=== PATIENT | female | born 1980 | race Caucasian/White ===

== ENCOUNTER 2016-10-09 06:28 | Day surgery (SDC) | payer MEDICAID ==
--- NOTE | 2016-10-03 14:40 | PREOPERATIVE H&P ---
History of Present Illness (Júnior Price M.D.; 10/03/2016 12:54 PM) The patient is a 36 year old female who presents for a pre operative evaluation. Surgical procedures include: laparoscopy with ovarian cystectomy. The reason for surgery is ovarian cyst removal/drainage. Date of procedure: (10/09). Planned anesthesia: general anesthesia. There have been no problems with general anesthesia, blood/blood products, or surgery in the past. The patient has no identifiable cardiac risk factors. Risk factors for post operative thromboembolism includes: oral contraceptives. In depth conversation with the patient/guardian concerning the procedure, risks, complications, benefits, alternatives, success, possible failure and need for further surgery or intervention questions were answered and no guarantees were made. Problem List/Past Medical (Júnior Price M.D.; 10/03/2016 12:55 PM) Anxiety (F41.9) Migraine (346.90) (G43.909) Polycystic ovaries (256.4) (E28.2) Allergies (Júnior Price M.D.; 10/03/2016 12:55 PM) No Known Drug Allergies Family History (Júnior Price M.D.; 10/03/2016 12:55 PM) Alcohol Abuse Brother. Alzheimer's disease Paternal Grandmother. Anxiety Disorder Mother, Brother. Cancer (not otherwise specified) Maternal Grandfather. Stomach Cancer Cervical Cancer Mother. Depression Mother. Diabetes Mellitus Type II Maternal Grandmother. Glaucoma (not otherwise specified) Maternal Grandmother. Hypertension Mother. Lung Cancer Maternal Grandmother. Lymphoma Father. + Testicular Cancer Social History (Júnior Price M.D.; 10/03/2016 12:55 PM) Alcohol use Occasional alcohol use. Marital status . Tobacco use Never smoker. Medication History (Júnior Price M.D.; 10/03/2016 1:49 PM) MetFORMIN HCl (500MG Tablet, 1 Oral two times daily, Taken starting 05/29/2016 ) Active. (Take with meals, start with 1 tablet in am for 1 week then increase to twice a day.) Tri-Sprintec (0.18/0.215/0.25MG-35 MCG Tablet, 1 (one) Tablet Oral daily, Taken starting 05/29/2016) Active. Spironolactone (50MG Tablet, 1 (one) Tablet Oral daily, in the morning, Taken starting 05/29/2016) Active. Sertraline HCl (50MG Tablet, 1 (one) Tablet Oral daily, Taken starting 2016) Active. Ibuprofen (200MG Capsule, Oral) Active. (AG[place]LL[place], back pain Occasional) Multi Vitamin Daily (1 Oral daily) Active. Medications Reconciled Past Surgical History (Júnior Price M.D.; 10/03/2016 12:55 PM) None Review of Systems (Júnior Price M.D.; 10/03/2016 12:55 PM) General Present- Feeling well. Not Present- Night Sweats and Weight Loss > 10lbs.. Skin Not Present- New Lesions and Rash. HEENT Present- Corrective lenses. Not Present- Hearing Loss. Neck Not Present- Neck Mass. Respiratory Not Present- Cough, Hemoptysis and Wheezing. Breast Not Present- Breast Mass and Skin Changes. Cardiovascular Not Present- Chest Pain and Fainting / Blacking Out. Gastrointestinal Not Present- Abdominal Pain, Bloating, Bloody Stool and Change in Bowel Habits. Female Genitourinary Present- Incontinence (rare MISBAH). Not Present- Blood in Urine, Dysuria, Frequency, Hematuria, Urgency, Vaginal Discharge, Vaginal itching/burning and Vulvar itching. Musculoskeletal Not Present- Joint Pain, Joint Redness and Myalgia. Neurological Not Present- Headaches. Psychiatric Present- Anxiety (controlled currently). Not Present- Depression and Mood changes. Endocrine Not Present- Hot flashes. Hematology Not Present- Enlarged Lymph Nodes. Vitals (Olimpia Mane RN; 10/03/2016 1:40 PM) 10/03/2016 1:38 PM Weight: 231 lb Height: 65.5in Body Surface Area: 2.11 m Body Mass Index: 37.86 kg/m Pulse: 68 (Regular) Resp.: 16 (Unlabored) BP: 128/76 (Sitting, Left Arm, Standard) Physical Exam (Júnior Price M.D.; 10/03/2016 12:55 PM) General General Appearance-Well Appearing. Build & Nutrition-Obese. Integumentary Integumentary General Characteristics Hair Distribution and Texture - hirsutism(lower jaw and upper neck). Head and Neck Neck Global Assessment - full range of motion, No lymphadenopathy. Thyroid Gland Characteristics - normal size and consistency and no palpable nodules. [facility] Mouth and Throat Oral Cavity/Oropharynx - Oropharynx - no evidence of airway distress observed. Chest and Lung Exam Chest and lung exam reveals -Clear and quiet, even and easy respiratory effort with no use of accessory muscles. Cardiovascular Cardiovascular examination reveals -normal heart sounds, regular rate and rhythm with no murmurs. Abdomen Inspection Inspection of the abdomen reveals - No Hernias. Palpation/Percussion Palpation and Percussion of the abdomen reveal - Non Tender, No hepatosplenomegaly and No Palpable abdominal masses. Other Characteristics - No Costovertebral angle tenderness - Left, No Costovertebral angle tenderness - Right. Female Genitourinary External Genitalia Vulva - Characteristics - Normal. Labia Majora - Characteristics - Bilateral - Normal. Perineum - Intact. Clitoris - Normal. Labia Minora - Characteristics - Bilateral - Normal. Introitus - Characteristics - Non Tender. Bartholin's Gland - Bilateral - Non Tender. Urethra - Characteristics - Normal. Urethral Meatus - Characteristics - No Urethral Caruncle. [place] Gland - Bilateral - Normal. Speculum & Bimanual Vagina - Vaginal Wall - Normal. Vaginal Lesions - None. Vaginal Mucosa - Triangle and Rugae, No Secretions. Cervix - Characteristics - Parous, No Motion tenderness. Uterus - Characteristics - Non Tender. Position - Anteverted. Adnexa - Characteristics - Bilateral - Non Tender. Bladder - Not Tender. Rectovaginal Exam - Did not examine. Customer Development Manager-present for exam . Peripheral Vascular Lower Extremity Palpation - Tenderness - Bilateral - Non Tender. Edema - Bilateral - No edema. Neuropsychiatric Mental status exam performed with findings of-Oriented X3 with appropriate mood and affect. Lymphatic Axillary Supraclavicular Nodes: Bilateral - Supraclavicular Lymph Nodes - No supraclavicular lymphadenopathy. 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 x1. Signed by Júnior Price M.D. (10/03/2016 1:58 PM) HOOD
[2016-10-09] MEDS ORDERED: SUCCINYLCHOLINE CHLORIDE 200 MG/10 ML VIAL ONE (07:14)
[2016-10-09] MEDS ORDERED: ROCURONIUM BROMIDE 50 MG/5 ML VIAL IV ONE (07:14)
--- NOTE | 2016-10-09 07:14 | PROCEDURE NOTE: GYN ---
HEALTHCARE ADVISORY SERVICES MANAGER Procedure - Brief Operative Note Date of procedure: 10/09/16 Pre-Op Diagnosis: Mature cystic teratoma of the left ovary Post-op diagnosis: other (Bilateral polycystic ovaries) Procedure: Left ovarian cystectomy Findings: Bilateral polycystic ovaries, no teratoma of the left ovary Anesthesia Type: General Physician: MO DOAN Estimated Blood Loss: 10 Pathology: sent Sponge and instrument counts: correct Condition: stable Disposition: PACU Narrative: The patient was taken to the operating theater and placed on the operating table. General endotracheal anesthesia was induced. She is placed in dorsal lithotomy position using the Niels stirrups. Her abdomen, vagina and perineum were prepped, her bladder drained with straight catheter, she is draped in sterile fashion. A Hulka tenaculum is placed in the cervix. An umbilical skin incision is made and carried sharply to the fascia and the fascia is scored. A 5 mm trocar is inserted into the abdominal cavity. The abdomen is insufflated with carbon dioxide. A suprapubic stab wound was made through which a second 5 mm trocar is entered into the abdominal cavity under direct visualization. The pelvis is inspected, with findings as above. As I did not visualize the lesion noted on ultrasound I placed a left lower quadrant incision through which a 12 mm trocar is entered into the abdomen under direct visualization. The sclerotic ovarian capsule of the left ovary is then opened. No deep cyst was identified. I biopsied the core of the ovary and submitted the specimen to pathology. The ovary is then closed with a running interlocking 2-0 Vicryl suture. The pelvis is copiously irrigated. The instruments are removed and the carbon dioxide allowed to escape via the trocar sleeves. The trocars are removed from the abdomen. The left lower quadrant fascial incision is closed with a figure of eight 0 Vicryl suture. The skin is then closed with a 4-0 Monocryl subcuticular suture. The smaller incisions are closed with interrupted [id number] 4-0 Monocryl sutures. Sterile dressings were applied. The Hulka tenaculum is removed. The patient is placed supine on the operating table and awakened by anesthesia. She is taken to recovery room in good condition
[2016-10-09] MEDS ORDERED: ONDANSETRON HCL 4 MG/2 ML VIAL ONE ×2 (07:15→10:54)
[2016-10-09] MEDS ORDERED: DEXAMETHASONE 4 MG/ML VIAL ONE (07:15)
[2016-10-09] MEDS ORDERED: FENTANYL 250 MCG/5 ML VIAL ONE (07:15)
[2016-10-09] MEDS ORDERED: KETOROLAC TROMETHAMINE 30 MG/ML VIAL ONE (07:16)
[2016-10-09 07:19] VITALS: TEMP 97.5
[2016-10-09] MEDS ORDERED: MIDAZOLAM HCL 2 MG/2 ML SYR IV ONE (07:19)
[2016-10-09] MEDS ORDERED: LIDOCAINE HCL 1% 20 ML VIAL SUBCUT ONE ×2 (07:19→10:00)
[2016-10-09] MEDS ORDERED: FAMOTIDINE IN SALINE, ISO-OSM 20 MG/50 ML PIGGYBACK IV SCH (07:19)
[2016-10-09] MEDS ORDERED: LACTATED RINGERS 1,000 ML IV SCH ×3 (07:19→10:00)
[2016-10-09] MEDS ORDERED: ACETAMINOPHEN 1,000 MG/100 ML VIAL IV SCH (07:19)
[2016-10-09] MEDS ORDERED: MIDAZOLAM HCL 2 MG/2 ML VIAL ONE (07:26)
[2016-10-09] MEDS ORDERED: FAMOTIDINE IN SALINE, ISO-OSM 50 ML IV ONE (07:26)
[2016-10-09] MEDS ORDERED: ACETAMINOPHEN 1,000 MG/100 ML VIAL IV ONE (07:26)
[2016-10-09] MEDS ORDERED: MORPHINE SULFATE 10 MG/ML SYR IV PRN (10:00)
[2016-10-09] MEDS ORDERED: ONDANSETRON HCL 4 MG/2 ML VIAL IV PRN (10:00)
[2016-10-09] MEDS ORDERED: FENTANYL 100 MCG/2 ML VIAL IV PRN (10:00)
[2016-10-09] MEDS: HYDROmorphone HCL 1 MG/ML SYR IV PRN ×2 (10:20→10:29)
[2016-10-09] MEDS ORDERED: HYDROmorphone HCL 1 MG/ML SYR ONE (10:27)
[2016-10-09 11:31] VITALS: BP 112/70; PULSE 60; RESP 11; O2SAT 92
== END 2016-10-09 11:45 | disposition home or self-care (01) ==
LOC: SDS 06:28
PROVIDERS: ATTEND Obstetrics & Gynecology
DX: N83.292 Other ovarian cyst, left side (principal); D27.1 Benign neoplasm of left ovary
CPT/HCPCS: 84703; J1170; J1885; J2250; J2405